=== PATIENT | female | born 1955 | race Hispanic/Latino ===

== ENCOUNTER 2018-08-31 23:32 | Emergency (ER) | payer OTHER, MEDICARE ==
[2018-09-01 00:23] LABS: APPEARANCE,URINE Cloudy (CLEAR); BILIRUBIN,URINE Small (NEGATIVE); COLOR,URINE Dark Yellow (YELLOW); GLUCOSE, URINE (UA) Negative (NEGATIVE); KETONES,URINE Negative (NEGATIVE); LEUKOCYTE ESTERASE ,URINE Small (NEGATIVE); NITRATE,URINE Negative (NEGATIVE); OCCULT BLOOD,URINE Negative (NEGATIVE); PROTEIN,URINE Negative (NEGATIVE); UROBILINOGEN,URINE >=8.0 mg/dL (0.2-1.0)
[2018-09-01 00:29] LABS: BASOPHILS % (AUTO) 1.2 % (0.0-5.0); EOSINOPHILS % (AUTO) 2.4 % (0.0-8.0); HEMATOCRIT 38.7 % (36-48); LYMPHOCYTES % (AUTO) 30.4 % (21.0-51.0); MEAN CORPUSCULAR HEMOGLOBIN 35.4 pg (27.0-33.0); MEAN CORPUSCULAR HGB CONC 35.2 g/dL (32.0-36.0); MEAN CORPUSCULAR VOLUME 100.5 fL (79-99); MONOCYTES % (AUTO) 11.5 % (3.0-13.0); NEUTROPHILS % (AUTO) 54.5 % (40.0-77.0); NUCLEATED RED BLOOD CELLS 0.2 % (0.0-0.19); PLATELET COUNT (AUTO) 47 K/uL (130-400); RED BLOOD CELL COUNT(AUTO) 3.86 MIL/uL (4.00-5.50); RED CELL DISTRIBUTION WIDTH 16.5 % (11.0-15.5)
[2018-09-01 01:30] LABS: CREATININE 0.9 mg/dL (0.5-1.5); POTASSIUM 3.3 mmol/L (3.5-5.1)
[2018-09-01 01:34] LABS: ALBUMIN 3.2 g/dL (3.5-5.0); BILIRUBIN,TOTAL 3.1 mg/dL (0.2-1.0)
[2018-09-01 01:57] LABS: BACTERIA,URINE Rare /HPF (None Seen); MUCUS,URINE Moderate LPF (None Seen); SQUAMOUS EPITHELIAL CELL,UR Moderate /HPF (0-2)
[2018-09-01 02:08] LABS: EOSINOPHILS % (MANUAL) 4 % (1-6); LYMPHOCYTES % (MANUAL) 28 % (22-44); MAN.DIFF COMMENT-IMPRESSION MANUAL DIFFERENTIAL; PLATELET MORPHOLOGY COMMENT DECREASED; SEGMENTED NEUTROPHILS % 68 % (40-70)
== END 2018-09-01 03:01 | disposition home or self-care (01) ==
LOC: EDH 23:32
DX: M54.5 Low back pain (principal); R10.11 Right upper quadrant pain; I10 Essential (primary) hypertension; E78.5 Hyperlipidemia, unspecified; Z98.890 Other specified postprocedural states
CPT/HCPCS: 36415; 71045; 80053; 81001; 82550; 83690; 84484; 85025; 93005

== ENCOUNTER 2018-09-28 05:34 | Day surgery (SDC) | payer OTHER, MEDICARE ==
[~2018-09-28] VITALS: Ht 147.3 cm; Wt 77.8 kg
[2018-09-28] MEDS ORDERED: SODIUM CHLORIDE 0.9% 1000ML 1,000 ML IV ONE (05:44)
[2018-09-28 06:07] VITALS: BP 173/83
[2018-09-28] MEDS ORDERED: PANT40TA25 PO (06:32)
[2018-09-28] MEDS ORDERED: FURO40TA5 PO (06:32)
[2018-09-28] MEDS ORDERED: PROP10TA10 PO (06:32)
[2018-09-28] MEDS ORDERED: RIFA550T PO (06:39)
[2018-09-28] MEDS ORDERED: NITR100C PO (06:39)
[2018-09-28] MEDS ORDERED: THIA100T75 PO (06:39)
[2018-09-28] MEDS ORDERED: SPIR50TA5 PO (06:39)
[2018-09-28] MEDS ORDERED: FOLI1TAB15 PO (06:39)
[2018-09-28] MEDS ORDERED: LACT10PA5 PO (06:39)
[2018-09-28] MEDS ORDERED: CHOL200074 PO (06:39)
[2018-09-28] MEDS ORDERED: PROPOFOL 10 MG/ML 20ML VIAL IV ONE (07:42)
[2018-09-28 08:06] VITALS: BP 110/55
[2018-09-28 08:14] VITALS: BP 127/63
[2018-09-28 08:18] VITALS: BP 134/65
[2018-09-28 08:23] VITALS: BP 118/58
[2018-09-28 08:31] VITALS: BP 125/85
== END 2018-09-28 08:40 | disposition home or self-care (01) ==
LOC: DAH 05:34 → ENDO 05:34
PROVIDERS: ATTEND Internal Medicine
DX: D12.0 Benign neoplasm of cecum (principal); K63.5 Polyp of colon; R19.5 Other fecal abnormalities; K57.30 Diverticulosis of large intestine without perforation or abscess without bleeding; I10 Essential (primary) hypertension; Z79.899 Other long term (current) drug therapy; Z68.33 Body mass index [BMI] 33.0-33.9, adult; K74.69 Other cirrhosis of liver; E55.9 Vitamin D deficiency, unspecified
CPT/HCPCS: 45380; 88305; A4606; J2704; J7030

== ENCOUNTER → 2019-02-21 | Outpatient (CLI) | payer OTHER, MEDICARE ==
[~2019-02-21] MED LIST: CHOL200074 PO; FOLI1TAB15 PO; FURO40TA5 PO; LACT10PA5 PO; NITR100C PO; PANT40TA25 PO; PROP10TA10 PO; RIFA550T PO; SPIR50TA5 PO; THIA100T75 PO
== END | disposition home or self-care (01) ==
LOC: RAH 07:23
PROVIDERS: ATTEND Internal Medicine Gastroenterology
DX: K80.10 Calculus of gallbladder with chronic cholecystitis without obstruction (principal); D73.2 Chronic congestive splenomegaly
CPT/HCPCS: 76700

== ENCOUNTER → 2019-06-06 | Outpatient (CLI) | payer OTHER, MEDICARE | END | disposition home or self-care (01) | LOC: RAH 08:44 | PROVIDERS: ATTEND Internal Medicine Gastroenterology | DX: K74.69 Other cirrhosis of liver (principal); K80.20 Calculus of gallbladder without cholecystitis without obstruction; J90 Pleural effusion, not elsewhere classified | CPT/HCPCS: 76700; 93975 ==

== ENCOUNTER 2019-07-09 12:46 | Emergency (ER) | payer OTHER, MEDICARE ==
[2019-07-09] MEDS ORDERED: ASPIRIN 325 MG TABLET ONE (13:14)
[2019-07-09 13:49] LABS: CREATININE 1.3 mg/dL (0.5-1.5); POTASSIUM 4.5 mmol/L (3.5-5.1)
[2019-07-09 13:50] LABS: BASOPHILS % (AUTO) 2.4 % (0.0-5.0); EOSINOPHILS % (AUTO) 2.2 % (0.0-8.0); HEMATOCRIT 32.9 % (36-48); LYMPHOCYTES % (AUTO) 11.2 % (21.0-51.0); MEAN CORPUSCULAR HEMOGLOBIN 34.2 pg (27.0-33.0); MEAN CORPUSCULAR HGB CONC 35.1 g/dL (32.0-36.0); MEAN CORPUSCULAR VOLUME 97.5 fL (79-99); MONOCYTES % (AUTO) 11.1 % (3.0-13.0); NEUTROPHILS % (AUTO) 73.1 % (40.0-77.0); NUCLEATED RED BLOOD CELLS 0.1 % (0.0-0.19); PLATELET COUNT (AUTO) 42 K/uL (130-400); RED BLOOD CELL COUNT(AUTO) 3.38 MIL/uL (4.00-5.50); RED CELL DISTRIBUTION WIDTH 14.2 % (11.0-15.5); WHITE BLOOD COUNT (AUTO) 4.1 K/uL (4.8-10.8)
[2019-07-09 13:53] LABS: ALBUMIN 2.6 g/dL (3.5-5.0); BILIRUBIN,TOTAL 2.7 mg/dL (0.2-1.0); TOTAL PROTEIN, SERUM 5.7 g/dL (6.0-8.3)
[2019-07-09 13:55] LABS: INR 1.26 (0.85-1.15); PARTIAL THROMBOPLASTIN TIME 29.9 SEC (26.3-35.5); PROTHROMBIN TIME 13.1 SEC (9.6-11.6)
[2019-07-09 14:56] LABS: B-TYPE NATRIURETIC PEPTIDE 23 pg/mL (0-100)
== END 2019-07-09 16:42 | disposition home or self-care (01) ==
LOC: EDH 12:46
DX: S20.211A Contusion of right front wall of thorax, initial encounter (principal); J90 Pleural effusion, not elsewhere classified; E78.5 Hyperlipidemia, unspecified; I10 Essential (primary) hypertension; K74.60 Unspecified cirrhosis of liver; W18.39XA Other fall on same level, initial encounter; Y93.01 Activity, walking, marching and hiking; Y92.89 Other specified places as the place of occurrence of the external cause; Y99.8 Other external cause status
CPT/HCPCS: 36415; 71045; 71250; 76705; 80053; 82550; 83880; 84484; 85025; 85610; 85730; 93005

== ENCOUNTER 2020-06-28 22:43 | Inpatient (IN) | payer OTHER, MEDICARE ==
[~2020-06-28] VITALS: Ht 154.9 cm; Wt 94.8 kg
[~2020-06-28 22:43] MED LIST changes: +ALBUHFA IH; -CHOL200074 PO; +FAMO40TA7 PO; +FERS325 PO; -FOLI1TAB15 PO; +FURO80TA3 PO; -LACT10PA5 PO; +LORA10TA7 PO; +MIRT15TA6 PO; +MULT-1192 PO; -PANT40TA25 PO; +PANT40TA54 PO; +ROPI0.5T7 PO; +SPIR100T PO; -SPIR50TA5 PO; +SUCR1TAB2 PO; -THIA100T75 PO
[2020-06-28 23:10] LABS: BASOPHILS % (AUTO) 0.5 % (0.0-5.0); EOSINOPHILS % (AUTO) 0.6 % (0.0-8.0); HEMATOCRIT 33.8 % (36-48); LYMPHOCYTES % (AUTO) 7.5 % (21.0-51.0); MEAN CORPUSCULAR HEMOGLOBIN 34.1 pg (27.0-33.0); MEAN CORPUSCULAR HGB CONC 33.7 g/dL (32.0-36.0); MEAN CORPUSCULAR VOLUME 101.2 fL (79-99); MONOCYTES % (AUTO) 6.9 % (3.0-13.0); NEUTROPHILS % (AUTO) 83.7 % (40.0-77.0); PLATELET COUNT (AUTO) 66 K/uL (130-400); RED BLOOD CELL COUNT(AUTO) 3.34 MIL/uL (4.00-5.50); RED CELL DISTRIBUTION WIDTH 16.4 % (11.0-15.5); WHITE BLOOD COUNT (AUTO) 6.4 K/uL (4.8-10.8)
[2020-06-28] MEDS ORDERED: LABETALOL 20 MG/4 ML DISP.SYRIN IV ONE (23:15)
[2020-06-28 23:23] LABS: CREATININE 1.7 mg/dL (0.5-1.5); POTASSIUM 4.7 mmol/L (3.5-5.1)
[2020-06-28 23:29] LABS: ALBUMIN 2.5 g/dL (3.5-5.0); BILIRUBIN,TOTAL 2.8 mg/dL (0.2-1.0); TOTAL PROTEIN, SERUM 5.9 g/dL (6.0-8.3)
[2020-06-28] MEDS ORDERED: SODIUM CHLORIDE 0.9% 1000ML 1,000 ML IV ONE (23:29)
[2020-06-28] MEDS ORDERED: ONDANSETRON HCL 4 MG/2 ML VIAL ONE (23:56)
[2020-06-28] MEDS ORDERED: FUROSEMIDE 10 MG/ML 4ML VIAL ONE (23:57)
[2020-06-29 00:01] LABS: CREATINE KINASE, TOTAL 131 U/L (21-232); LIPASE 296 U/L (114-286)
[2020-06-29 00:03] LABS: INR 1.36 (0.85-1.15); PARTIAL THROMBOPLASTIN TIME 29.8 SEC (26.3-35.5); PROTHROMBIN TIME 14.5 SEC (9.6-11.6)
[2020-06-29 00:20] LABS: APPEARANCE,URINE Clear (CLEAR); BILIRUBIN,URINE Negative (NEGATIVE); COLOR,URINE Dark Yellow (YELLOW); GLUCOSE, URINE (UA) Negative (NEGATIVE); KETONES,URINE Negative (NEGATIVE); LEUKOCYTE ESTERASE ,URINE Negative (NEGATIVE); NITRATE,URINE Negative (NEGATIVE); OCCULT BLOOD,URINE Trace (NEGATIVE); PH,URINE 5.5 (5.0-8.0); PROTEIN,URINE Negative (NEGATIVE); UROBILINOGEN,URINE 0.2 mg/dL (0.2-1.0)
[2020-06-29 00:31] LABS: PLATELET MORPHOLOGY COMMENT DECREASED
[2020-06-29 00:31] LABS: AMPHET/METH SCREEN,URINE NEGATIVE (NEGATIVE); BARBITURATE SCREEN, URINE NEGATIVE (NEGATIVE); BENZODIAZEPINES SCREEN,URINE NEGATIVE (NEGATIVE); CANNABINOID SCREEN,URINE NEGATIVE (NEGATIVE); COCAINE SCREEN,URINE NEGATIVE (NEGATIVE); OPIATE SCREEN,URINE NEGATIVE (NEGATIVE); PHENCYCLIDINE SCREEN,URINE NEGATIVE (NEGATIVE)
[2020-06-29 00:36] LABS: BACTERIA,URINE None Seen /HPF (None Seen); RBC,URINE 0-1 /HPF (0-1); WBC,URINE 0-1 /HPF (0-1)
[2020-06-29] MEDS: CEFTRIAXONE SODIUM 1 GM IV SCH (05:00)
[2020-06-29] MEDS ORDERED: LACTULOSE 20 GM/30 ML UDCUP PO SCH (05:00)
[2020-06-29] MEDS ORDERED: LACTULOSE 20 GM/30 ML UDCUP ONE (05:09)
[2020-06-29 05:59] LABS: HEMOGLOBIN A1C 4.1 % (4.0-6.0)
[2020-06-29] MEDS ORDERED: CEFTRIAXONE SODIUM 1 GM ONE (06:13)
[2020-06-29] MEDS ORDERED: PANTOPRAZOLE 40 MG/VIAL ONE (09:36)
[2020-06-29 09:45] VITALS: BP 96/66
[2020-06-29] MEDS ORDERED: LACT10SO PO (10:11)
[2020-06-29 12:00] VITALS: BP 112/61
[2020-06-29] MEDS: PROPRANOLOL HCL 10 MG TAB PO SCH ×2 (12:27→21:12)
[2020-06-29] MEDS: SPIRONOLACTONE 25 MG TAB PO SCH ×2 (12:28→21:12)
[2020-06-29] MEDS: PANTOPRAZOLE SODIUM 40 MG TABLET.DR PO SCH (12:28)
[2020-06-29] MEDS: FUROSEMIDE 40 MG TABLET PO SCH ×2 (12:28→21:12)
[2020-06-29] MEDS: LACTULOSE 20 GM/30 ML UDCUP PO SCH ×3 (12:29→21:11)
[2020-06-29 16:00] VITALS: BP 160/72
[2020-06-29 19:50] VITALS: BP 131/77
[2020-06-30] VITALS (8 sets, daily range): BP systolic 120–150; BP diastolic 49–72
[2020-06-30 03:54] LABS: BASOPHILS % (AUTO) 0.7 % (0.0-5.0); EOSINOPHILS % (AUTO) 4.8 % (0.0-8.0); LYMPHOCYTES % (AUTO) 12.6 % (21.0-51.0); MEAN CORPUSCULAR HEMOGLOBIN 33.9 pg (27.0-33.0); MEAN CORPUSCULAR HGB CONC 33.2 g/dL (32.0-36.0); MONOCYTES % (AUTO) 12.2 % (3.0-13.0); NEUTROPHILS % (AUTO) 69.1 % (40.0-77.0); PLATELET COUNT (AUTO) 66 K/uL (130-400); RED BLOOD CELL COUNT(AUTO) 3.04 MIL/uL (4.00-5.50); RED CELL DISTRIBUTION WIDTH 16.8 % (11.0-15.5); WHITE BLOOD COUNT (AUTO) 6.8 K/uL (4.8-10.8)
[2020-06-30 04:05] LABS: BILIRUBIN,TOTAL 2.9 mg/dL (0.2-1.0); MAGNESIUM 2.4 mg/dL (1.80-2.40); PHOSPHORUS 3.6 mg/dL (2.5-4.9); POTASSIUM 3.8 mmol/L (3.5-5.1); TOTAL PROTEIN, SERUM 4.9 g/dL (6.0-8.3)
[2020-06-30 04:19] LABS: ABG BASE EXCESS -0.3 mmol/L (-2.0-3.0); ABG PCO2 30 mmHg (32-45)
[2020-06-30] MEDS: LACTULOSE 20 GM/30 ML UDCUP PO SCH ×8 (04:49→23:55)
[2020-06-30] MEDS: CEFTRIAXONE SODIUM 1 GM IV SCH (04:49)
[2020-06-30] MEDS: FUROSEMIDE 40 MG TABLET PO SCH ×2 (08:22→20:55)
[2020-06-30] MEDS: PROPRANOLOL HCL 10 MG TAB PO SCH ×2 (08:22→20:54)
[2020-06-30] MEDS: SPIRONOLACTONE 25 MG TAB PO SCH ×2 (08:22→20:54)
[2020-06-30] MEDS: PANTOPRAZOLE SODIUM 40 MG TABLET.DR PO SCH (08:22)
[2020-07-01] VITALS (10 sets, daily range): BP systolic 98–134; BP diastolic 43–79
[2020-07-01] MEDS: CEFTRIAXONE SODIUM 1 GM IV SCH (04:18)
[2020-07-01] MEDS: LACTULOSE 20 GM/30 ML UDCUP PO SCH ×4 (04:18→21:27)
[2020-07-01] MEDS: SPIRONOLACTONE 25 MG TAB PO SCH (08:16)
[2020-07-01] MEDS: PANTOPRAZOLE SODIUM 40 MG TABLET.DR PO SCH (08:16)
[2020-07-01] MEDS: PROPRANOLOL HCL 10 MG TAB PO SCH ×2 (08:17→22:36)
[2020-07-01] MEDS: FUROSEMIDE 40 MG TABLET PO SCH (08:18)
[2020-07-01 08:33] LABS: ALBUMIN 2.1 g/dL (3.5-5.0); BILIRUBIN,TOTAL 2.9 mg/dL (0.2-1.0); CREATININE 2.4 mg/dL (0.5-1.5); TOTAL PROTEIN, SERUM 5.2 g/dL (6.0-8.3)
[2020-07-01 08:36] LABS: POTASSIUM 3.5 mmol/L (3.5-5.1)
[2020-07-01 15:04] LABS: BASOPHILS % (AUTO) 0.7 % (0.0-5.0); EOSINOPHILS % (AUTO) 3.2 % (0.0-8.0); HEMATOCRIT 32.2 % (36-48); LYMPHOCYTES % (AUTO) 13.9 % (21.0-51.0); MEAN CORPUSCULAR HEMOGLOBIN 34.1 pg (27.0-33.0); MEAN CORPUSCULAR VOLUME 106.6 fL (79-99); MONOCYTES % (AUTO) 16.8 % (3.0-13.0); NEUTROPHILS % (AUTO) 64.7 % (40.0-77.0); PLATELET COUNT (AUTO) 62 K/uL (130-400); RED BLOOD CELL COUNT(AUTO) 3.02 MIL/uL (4.00-5.50); RED CELL DISTRIBUTION WIDTH 17.4 % (11.0-15.5); WHITE BLOOD COUNT (AUTO) 6.9 K/uL (4.8-10.8)
[2020-07-01 15:19] LABS: BILIRUBIN,TOTAL 2.8 mg/dL (0.2-1.0); CREATININE 2.4 mg/dL (0.5-1.5); POTASSIUM 3.5 mmol/L (3.5-5.1); TOTAL PROTEIN, SERUM 5.1 g/dL (6.0-8.3)
[2020-07-01] MEDS ORDERED: ALBUMIN (HUMAN) 25% 200 ML IV PRN (17:00)
[2020-07-01] MEDS: OCTREOTIDE ACETATE 100 MCG/ML AMP SQ SCH (18:24)
[2020-07-01] MEDS: MIDODRINE HCL 5 MG TABLET PO SCH (21:27)
[2020-07-01] MEDS: RIFAXIMIN 550 MG TABLET PO SCH (21:29)
[2020-07-02] MEDS: OCTREOTIDE ACETATE 100 MCG/ML AMP SQ SCH ×3 (01:41→18:12)
[2020-07-02] MEDS: MORPHINE SULFATE 2 MG/ML 1ML SYG IV PRN ×2 (01:46→06:53)
[2020-07-02 03:34] VITALS: BP 125/46
[2020-07-02 04:21] LABS: EOSINOPHILS % (AUTO) 5.9 % (0.0-8.0); HEMATOCRIT 32.7 % (36-48); LYMPHOCYTES % (AUTO) 14.2 % (21.0-51.0); MEAN CORPUSCULAR HEMOGLOBIN 33.9 pg (27.0-33.0); MEAN CORPUSCULAR HGB CONC 31.8 g/dL (32.0-36.0); MEAN CORPUSCULAR VOLUME 106.5 fL (79-99); MONOCYTES % (AUTO) 14.2 % (3.0-13.0); NEUTROPHILS % (AUTO) 64.3 % (40.0-77.0); PLATELET COUNT (AUTO) 63 K/uL (130-400); RED BLOOD CELL COUNT(AUTO) 3.07 MIL/uL (4.00-5.50); RED CELL DISTRIBUTION WIDTH 17.4 % (11.0-15.5)
[2020-07-02 04:41] LABS: BILIRUBIN,TOTAL 3.9 mg/dL (0.2-1.0); CREATININE 2.6 mg/dL (0.5-1.5); MAGNESIUM 3.4 mg/dL (1.80-2.40); POTASSIUM 3.8 mmol/L (3.5-5.1)
[2020-07-02] MEDS: CEFTRIAXONE SODIUM 1 GM IV SCH (05:24)
[2020-07-02 07:00] VITALS: BP 100/43
[2020-07-02] MEDS: PROPRANOLOL HCL 10 MG TAB PO SCH ×2 (09:00→21:00)
[2020-07-02] MEDS: LACTULOSE 20 GM/30 ML UDCUP PO SCH ×2 (11:05→22:57)
[2020-07-02] MEDS: MIDODRINE HCL 5 MG TABLET PO SCH ×3 (11:06→23:25)
[2020-07-02] MEDS: RIFAXIMIN 550 MG TABLET PO SCH ×2 (11:06→22:58)
[2020-07-02] MEDS: PANTOPRAZOLE SODIUM 40 MG TABLET.DR PO SCH (11:06)
[2020-07-02 11:46] VITALS: BP 125/52
[2020-07-02 16:47] VITALS: BP 119/59
[2020-07-02] MEDS ORDERED: ALBUTEROL INHALER 90MCG/INH IH PRN (18:00)
[2020-07-02] MEDS: DEXTROSE 5%-WATER 1,000 ML IV SCH (18:12)
[2020-07-02 20:00] VITALS: BP 110/54
[2020-07-02] MEDS: ROPINIROLE HCL 0.25 MG TABLET PO SCH (21:00)
[2020-07-02] MEDS ORDERED: PROPRANOLOL HCL 10 MG TAB PO SCH (21:00)
[2020-07-02] MEDS ORDERED: RIFAXIMIN 550 MG TABLET PO SCH (21:00)
[2020-07-02] MEDS: FERROUS SULFATE 325 MG TABLET.DR PO SCH (22:57)
[2020-07-02] MEDS: MIRTAZAPINE 15 MG TABLET PO SCH (22:57)
[2020-07-02] MEDS: FAMOTIDINE 20MG TAB 20 MG TAB PO SCH (22:58)
[2020-07-03 00:17] VITALS: BP 93/57
[2020-07-03] MEDS: OCTREOTIDE ACETATE 100 MCG/ML AMP SQ SCH ×3 (01:34→18:06)
[2020-07-03 04:57] VITALS: BP 111/63
[2020-07-03 06:10] LABS: HEMATOCRIT 32.4 % (36-48); MEAN CORPUSCULAR HGB CONC 31.5 g/dL (32.0-36.0); WHITE BLOOD COUNT (AUTO) 7.1 K/uL (4.8-10.8)
[2020-07-03 06:13] LABS: CREATININE 2.5 mg/dL (0.5-1.5); POTASSIUM 3.4 mmol/L (3.5-5.1)
[2020-07-03] MEDS: CEFTRIAXONE SODIUM 1 GM IV SCH (06:39)
[2020-07-03] MEDS: DEXTROSE 5%-WATER 1,000 ML IV SCH ×2 (06:39→21:46)
[2020-07-03 08:00] VITALS: BP 114/52
[2020-07-03] MEDS: PANTOPRAZOLE SODIUM 40 MG TABLET.DR PO SCH (08:38)
[2020-07-03] MEDS: LORATADINE 10 MG TABLET PO SCH (08:38)
[2020-07-03] MEDS: SUCRALFATE 1 GM TABLET PO SCH ×3 (08:38→18:06)
[2020-07-03] MEDS: MULTIVITAMIN TABLET PO SCH (08:38)
[2020-07-03] MEDS: MIDODRINE HCL 5 MG TABLET PO SCH ×3 (08:38→21:46)
[2020-07-03] MEDS: FERROUS SULFATE 325 MG TABLET.DR PO SCH ×2 (08:38→21:46)
[2020-07-03] MEDS: PROPRANOLOL HCL 10 MG TAB PO SCH ×2 (08:39→21:00)
[2020-07-03] MEDS: LACTULOSE 20 GM/30 ML UDCUP PO SCH ×2 (08:39→21:47)
[2020-07-03] MEDS: RIFAXIMIN 550 MG TABLET PO SCH ×2 (08:39→21:46)
[2020-07-03 11:00] VITALS: BP 119/50
[2020-07-03 16:00] VITALS: BP 111/56
[2020-07-03 20:00] VITALS: BP 125/70
[2020-07-03] MEDS: MIRTAZAPINE 15 MG TABLET PO SCH (21:46)
[2020-07-03] MEDS: ROPINIROLE HCL 0.25 MG TABLET PO SCH (21:46)
[2020-07-04] VITALS: BP 104/51
[2020-07-04] MEDS: OCTREOTIDE ACETATE 100 MCG/ML AMP SQ SCH ×3 (00:44→17:12)
[2020-07-04 03:52] VITALS: BP 117/51
[2020-07-04 04:46] LABS: HEMATOCRIT 26.5 % (36-48); MEAN CORPUSCULAR HEMOGLOBIN 33.7 pg (27.0-33.0); MEAN CORPUSCULAR HGB CONC 32.8 g/dL (32.0-36.0); MEAN CORPUSCULAR VOLUME 102.7 fL (79-99); RED BLOOD CELL COUNT(AUTO) 2.58 MIL/uL (4.00-5.50); RED CELL DISTRIBUTION WIDTH 17.2 % (11.0-15.5); WHITE BLOOD COUNT (AUTO) 6.9 K/uL (4.8-10.8)
[2020-07-04 04:59] LABS: CREATININE 2.3 mg/dL (0.5-1.5); POTASSIUM 3.9 mmol/L (3.5-5.1)
[2020-07-04] MEDS: CEFTRIAXONE SODIUM 1 GM IV SCH (06:25)
[2020-07-04] MEDS: SUCRALFATE 1 GM TABLET PO SCH ×3 (06:25→17:12)
[2020-07-04 08:09] VITALS: BP_SYST 114; BP_SYST 96; BP_DIAS 32; BP_DIAS 46
[2020-07-04] MEDS: MULTIVITAMIN TABLET PO SCH (08:50)
[2020-07-04] MEDS: PANTOPRAZOLE SODIUM 40 MG TABLET.DR PO SCH (08:50)
[2020-07-04] MEDS: MIDODRINE HCL 5 MG TABLET PO SCH ×3 (08:50→23:16)
[2020-07-04] MEDS: RIFAXIMIN 550 MG TABLET PO SCH ×2 (08:50→23:16)
[2020-07-04] MEDS: LORATADINE 10 MG TABLET PO SCH (08:50)
[2020-07-04] MEDS: FAMOTIDINE 20MG TAB 20 MG TAB PO SCH (08:50)
[2020-07-04] MEDS: FERROUS SULFATE 325 MG TABLET.DR PO SCH ×2 (08:50→23:16)
[2020-07-04] MEDS: LACTULOSE 20 GM/30 ML UDCUP PO SCH ×2 (08:51→23:17)
[2020-07-04] MEDS: PROPRANOLOL HCL 10 MG TAB PO SCH ×2 (09:00→20:47)
[2020-07-04] MEDS: DEXTROSE 5%-WATER 1,000 ML IV SCH ×2 (09:45→23:15)
[2020-07-04 11:19] VITALS: BP 111/56
[2020-07-04 16:15] VITALS: BP 139/52
[2020-07-04 21:10] VITALS: BP 107/36
[2020-07-04] MEDS: ROPINIROLE HCL 0.25 MG TABLET PO SCH (23:16)
[2020-07-04] MEDS: MIRTAZAPINE 15 MG TABLET PO SCH (23:16)
[2020-07-05 00:16] VITALS: BP 94/52
[2020-07-05] MEDS: OCTREOTIDE ACETATE 100 MCG/ML AMP SQ SCH ×2 (01:28→09:47)
[2020-07-05 04:55] VITALS: BP 134/63
[2020-07-05 05:23] LABS: CREATININE 1.8 mg/dL (0.5-1.5); POTASSIUM 3.8 mmol/L (3.5-5.1)
[2020-07-05] MEDS: CEFTRIAXONE SODIUM 1 GM IV SCH (06:25)
[2020-07-05] MEDS: SUCRALFATE 1 GM TABLET PO SCH ×2 (06:25→11:49)
[2020-07-05 07:00] VITALS: BP 117/48
[2020-07-05] MEDS ORDERED: FURO40TA5 PO (07:22)
[2020-07-05] MEDS ORDERED: SPIR25TA6 PO (07:22)
[2020-07-05] MEDS ORDERED: AMOX-426 PO (07:22)
[2020-07-05] MEDS: PROPRANOLOL HCL 10 MG TAB PO SCH (09:00)
[2020-07-05] MEDS: MULTIVITAMIN TABLET PO SCH (09:46)
[2020-07-05] MEDS: LORATADINE 10 MG TABLET PO SCH (09:46)
[2020-07-05] MEDS: FERROUS SULFATE 325 MG TABLET.DR PO SCH (09:46)
[2020-07-05] MEDS: RIFAXIMIN 550 MG TABLET PO SCH (09:46)
[2020-07-05] MEDS: FAMOTIDINE 20MG TAB 20 MG TAB PO SCH (09:47)
[2020-07-05] MEDS: LACTULOSE 20 GM/30 ML UDCUP PO SCH (09:47)
[2020-07-05] MEDS: MIDODRINE HCL 5 MG TABLET PO SCH (09:49)
[2020-07-05] MEDS: PANTOPRAZOLE SODIUM 40 MG TABLET.DR PO SCH (10:00)
[2020-07-05 11:00] VITALS: BP 134/61
== END 2020-07-05 13:45 | disposition home or self-care (01) | DRG 441 ==
LOC: EDH 22:43 → EDHIP 06-29 04:58 → UNDOADMIN 06-29 04:58 → 4CH 06-29 10:08 → 2DH 06-29 18:46 → 3CH 07-01 22:50
PROVIDERS: ADMIT Internal Medicine Pulmonary Disease; ATTEND Internal Medicine Pulmonary Disease
DX: K72.00 Acute and subacute hepatic failure without coma (principal); K76.7 Hepatorenal syndrome; K65.2 Spontaneous bacterial peritonitis; N17.9 Acute kidney failure, unspecified; E87.0 Hyperosmolality and hypernatremia; K70.30 Alcoholic cirrhosis of liver without ascites; K29.80 Duodenitis without bleeding; K29.70 Gastritis, unspecified, without bleeding; D50.9 Iron deficiency anemia, unspecified; D63.8 Anemia in other chronic diseases classified elsewhere; Z20.828 Contact with and (suspected) exposure to other viral communicable diseases; K72.10 Chronic hepatic failure without coma; N18.9 Chronic kidney disease, unspecified; Z79.899 Other long term (current) drug therapy; Z91.19 Patient's noncompliance with other medical treatment and regimen
CPT/HCPCS: 36415; 36600; 70450; 71045; 76705; 76770; 80048; 80053; 80076; 80305; 81001; 82140; 82550; 82803; 82948; 83036; 83605; 83690; 83735; 83880; 84100; 84484; 85025; 85027; 85610; 85730; 87040; 87426; 93005; 97039; A4330; C9113; G0378; J0696; J1940; J2354; J2405; J7030; J7070; U0003